=== PATIENT | female | born 1945 | race Caucasian/White ===

== ENCOUNTER 2017-02-06 12:44 | Emergency (ER) | payer OTHER ==
[~2017-02-06] VITALS: Ht 160 cm; Wt 52.4 kg
[2017-02-06 12:50] VITALS: TEMP 36.8; Ht 160 cm; Wt 52.4 kg
[2017-02-06] MEDS ORDERED: LORAZEPAM 2 MG/ML 1 ML VIAL IV STA (13:36)
[2017-02-06] MEDS ORDERED: SODIUM CHLORIDE 0.9% 1000ML 1,000 ML IV STA (13:36)
[2017-02-06] MEDS ORDERED: MoRPHine SULFATE 4 MG/ML 1 ML CARP\\VIAL IV STA (13:36)
[2017-02-06] MEDS ORDERED: DEXT40GE20 JT (13:59)
[2017-02-06] MEDS ORDERED: POLY335019 JT (13:59)
[2017-02-06] MEDS ORDERED: [UNRECOGNIZED DRUG - OTHER] PR (13:59)
[2017-02-06] MEDS ORDERED: MOMLX JT (13:59)
[2017-02-06] MEDS ORDERED: OXYC1TAB3 JT (13:59)
[2017-02-06] MEDS ORDERED: ALPR0.25 JT (13:59)
[2017-02-06] MEDS ORDERED: ACET-1311 JT (13:59)
[2017-02-06] MEDS ORDERED: GLGKIT INJ (13:59)
[2017-02-06] MEDS ORDERED: BISA10SU5 PR (13:59)
--- NOTE | 2017-02-06 14:03 | EMERGENCY ROOM VISIT NOTE ---
History Report prepared by Colten: Jordyn Alarcon Under the Supervision of: Dr. Laurie Jean Baptiste D.O. First contact with patient: 13:17 Chief Complaint: OTHER COMPLAINT Stated Complaint: WOUND DRAIN History of Present Illness The patient is a 71 year old female who presents to the Emergency Room complaining of constant abdominal pain beginning a few days ago. The patient states that she has a history of stomach cancer and had surgery about 6 weeks ago. She reports that she has had two drains in that have been draining less over the last few days. She notes that one of the drains has a pinhole in it. The patient states that she has been at [facility] and has had increasing gassiness, diarrhea, and a fever that began last night of 100.3. She reports that her physician was concerned that she had malodorous drainage from the site and increasing abdominal pain. The patient denies any blood in the stool. She notes that she has been taking Colace and after stopping it her diarrhea has improved slightly. Significant time spent reviewing records from [facility] which provided more detail regarding pt's surgery and course while at [facility]. Pt had complicated distal gastrectomy with subsequent leak and additional repair as well as post fluid collections requiring drainage tubes be placed. Source of History: patient Onset: a few days ago Position: abdomen Timing: constant Note: Pt complains of gassiness, a pinhole in her drain, and malodorous drainage. She denies blood in the stool. Review of Systems See HPI for pertinent positives & negatives. A total of 10 systems reviewed and were otherwise negative. Past Medical & Surgical Medical Problems: (1) Stomach cancer Family History No pertinent family history stated. Social History Smoking Status: Never Smoker Marital Status: Housing Status: lives with family Occupation Status: retired Current/Historical Medications Scheduled Acetaminophen (Tylenol), 975 MG JT Q6 Alprazolam (Xanax), 0.25 MG JT Q8 Bimatoprost (Lumigan), 1 DROPS OP HS Bisacodyl (Bisacodyl), 10 MG CA DAILY Brimonidine Tartrate Oph (Alphagan P Oph), 1 DROP OP TID Clonazepam (Klonopin), 0.5 MG JT DAILY Dextrose (Diabetic Use) (Glucose), 15 GM JT UD Docusate Sodium (Docusate Sodium), 50 MG JT BID Dorzolamide Hcl-Timolol Maleat (Cosopt Oph), 1 DROPS OP BID Enoxaparin (Lovenox), 40 MG SQ DAILY Glucagon (Glucagon Emergency Kit), 1 MG INJ UD Insulin Isophane (Human) (Humulin N Kwikpen), 6 SC TIDM Magnesium Hydroxide (Milk of Magnesia), 30 ML JT DAILY Polyethylene Glycol 3350 (Miralax), 17 GM JT QLUNCH [Sodium Biphosphate], 133 ML CA DAILY Scheduled PRN Oxycodone Ir (Roxicodone Ir), 5 MG JT Q4H PRN for Severe Pain Allergies Coded Allergies: No Known Allergies (Unverified , 02/06/17) Physical Exam Vital Signs Date Time Temp Pulse Resp B/P (MAP) Pulse Ox O2 Delivery O2 Flow Rate FiO2 02/06/17 19:39 98 137/78 95 02/06/17 19:31 141/83 02/06/17 19:29 92 22 94 02/06/17 19:14 92 22 97 02/06/17 19:01 130/76 02/06/17 18:59 96 23 02/06/17 18:44 105 21 99 02/06/17 18:31 135/77 02/06/17 18:30 92 19 135/77 98 Room Air 02/06/17 18:29 92 19 97 02/06/17 18:01 151/82 02/06/17 17:59 96 22 02/06/17 17:44 97 18 02/06/17 17:31 128/74 02/06/17 17:30 98 19 128/74 98 Room Air 02/06/17 17:29 94 21 02/06/17 17:14 95 20 02/06/17 17:01 133/81 02/06/17 16:59 94 23 02/06/17 16:44 93 18 02/06/17 16:31 137/81 02/06/17 16:29 95 20 98 02/06/17 16:14 91 22 97 02/06/17 16:01 127/74 02/06/17 16:00 121/79 02/06/17 16:00 92 18 127/74 96 Room Air 02/06/17 15:01 126/69 02/06/17 14:59 93 22 99 02/06/17 14:49 120/66 02/06/17 14:49 96 19 132/80 98 Room Air 02/06/17 14:44 92 13 97 02/06/17 14:39 91 02/06/17 12:50 36.8 93 16 132/70 98 Room Air 02/06/17 12:47 132/70 Physical Exam GENERAL: alert, well appearing, well nourished, no distress, non-toxic EYE EXAM: normal conjunctiva, PERRL and EOM's grossly intact OROPHARYNX: no exudate, no erythema, lips, buccal mucosa, and tongue normal and mucous membranes are moist NECK: supple, no nuchal rigidity, no adenopathy, non-tender LUNGS: Clear to auscultation. Normal chest wall mechanics HEART: no murmurs, S1 normal and S2 normal ABDOMEN: abdomen soft, normo-active bowel sounds, no masses, no rebound or guarding. J tube small amount of surrounding erythema at the skin site, no bleeding, no purulent drainage, sutures intact. Two additional drains skin site well appearing, no erythema, no drainage, healing vertical midline incision with 1cm of dehiscence on the inferior margin with foul odor and purulent drainage, dressing soaked with yellow purulent material. BACK: Back is symmetrical on inspection and there is no deformity, no midline tenderness, no CVA tenderness. SKIN: no rashes and no bruising UPPER EXTREMITIES: upper extremities are grossly normal. LOWER EXTREMITIES: No pitting edema. NEURO EXAM: Normal sensorium, cranial nerves II-XII grossly intact, normal speech, no gross weakness of arms, no gross weakness of legs. Medical Decision & Procedures ER Provider Diagnostic Interpretation: Radiology results have been interpreted by the radiologist and reviewed by me. 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 Lung bases: Calcified granuloma in the left lung base. Normal heart size. No pericardial or pleural effusion. Liver: Trace fluid and gas along the anterior aspect of the left hepatic lobe. Mildly nodular undersurface of the liver with relative hypertrophy of the left hepatic lobe. No focal lesion. Patent hepatic vasculature. Biliary: No intrahepatic or extrahepatic biliary ductal dilatation. Gallbladder is mildly dilated with a mildly thick wall. No pericholecystic fluid or inflammatory change. Hyperdensity in the gallbladder neck suggests stones or sludge. Pancreas: Normal. Spleen: Parenchymal calcifications likely suggests prior granulomatous infection. Adrenal glands: Few varices suggested immediately inferior to the right adrenal gland. Mild nodular thickening of the left adrenal gland. Kidneys and ureters: Mild urothelial thickening of the proximal ureters suggested, greater on the left. Bladder: Normal. Pelvic organs: Uterus grossly normal. No adnexal masses. Bowel: Colocolonic anastomosis at the level of the splenic flexure, which is patent. Normal appendix. No bowel obstruction. Postsurgical changes of right retrocolic Jayme-en-Y gastric bypass. A jejunostomy tube is in place. Peritoneal cavity: 2 pigtail drains are in place, one terminating anteriorly in the mid abdomen immediately subjacent to a sinus tract (series 3 image 220) and a second drain terminating in the left anterior abdomen. No significant fluid at the termini, however, there is a laminar gas and fluid containing rim enhancing fluid collection along the course of the left drain. This collection is located immediately subjacent to the abdominal wall and tracks superiorly to the anterior left hepatic lobe. This collection measures 1.4 cm in thickness and approximately 8 cm in width. Vasculature: Atherosclerosis of the normal caliber abdominal aorta. IVC patent. However, nonocclusive thrombus noted in the left common femoral vein (series 3 image 336). Lymph nodes: No enlarged lymph nodes in the abdomen or pelvis. Abdominal wall: A midline defect is noted in the ventral abdomen, which demonstrates rim enhancement and contains small amount of fluid and gas. An overlying bandage is noted. This appears to violate the anterior peritoneum/abdominal wall at the level of the right mid abdominal drain. Musculoskeletal: Normal. IMPRESSION: 1. Laminar rim-enhancing fluid collection in the anterior left peritoneum tracking to the left anterior hepatic lobe, consistent with an abscess. This is along the course of the left abdominal pigtail drain, although no fluid is at the terminus of the drain. 2. Midline sinus tract containing fluid and gas with defect in the overlying cutis and a potential defect in the subjacent abdominal wall/peritoneum at the level of the right mid abdominal pigtail drain. No significant fluid at the terminus of the right mid abdominal drain. 3. Nonocclusive thrombus in the left common femoral vein. 4. Mild urothelial thickening in the proximal ureters. Upper tract infection cannot be excluded. Correlate with urinalysis. 5. Mildly dilated gallbladder with mild wall thickening. This is equivocal for cholecystitis given the absence of pericholecystic change. If there is clinical concern for cholecystitis, nuclear medicine hepatobiliary scan to be considered. The report will be called/faxed according to standard departmental protocol. Electronically signed by: Edward Romano M.D. 02/06/2017 4:05 PM Dictated Date/Time: 02/06/2017 3:49 PM Laboratory Results 02/06/17 14:00 Red Blood Count 3.96, Mean Corpuscular Volume 88.4, Mean Corpuscular Hemoglobin 29.3, Mean Corpuscular Hemoglobin Concent 33.1, Mean Platelet Volume 8.2, Neutrophils (%) (Auto) 69.1, Lymphocytes (%) (Auto) 18.9, Monocytes (%) (Auto) 10.7, Eosinophils (%) (Auto) 0.5, Basophils (%) (Auto) 0.4, Neutrophils # (Auto ) 5.40, Lymphocytes # (Auto) 1.48, Monocytes # (Auto) 0.84, Eosinophils # (Auto ) 0.04, Basophils # (Auto) 0.03 02/06/17 14:00 Test 02/06/17 14:00 02/06/17 14:20 02/06/17 14:27 White Blood Count 7.82 K/uL (4.8-10.8) Red Blood Count 3.96 M/uL (4.2-5.4) Hemoglobin 11.6 g/dL (12.0-16.0) Hematocrit 35.0 % (37-47) Mean Corpuscular Volume 88.4 fL (80-100) Mean Corpuscular Hemoglobin 29.3 pg (25-34) Mean Corpuscular Hemoglobin Concent 33.1 g/dl (32-36) Platelet Count 397 K/uL (130-400) Mean Platelet Volume 8.2 fL (7.4-10.4) Neutrophils (%) (Auto) 69.1 % Lymphocytes (%) (Auto) 18.9 % Monocytes (%) (Auto) 10.7 % Eosinophils (%) (Auto) 0.5 % Basophils (%) (Auto) 0.4 % Neutrophils # (Auto) 5.40 K/uL (1.4-6.5) Lymphocytes # (Auto) 1.48 K/uL (1.2-3.4) Monocytes # (Auto) 0.84 K/uL (0.11-0.59) Eosinophils # (Auto) 0.04 K/uL (0-0.5) Basophils # (Auto) 0.03 K/uL (0-0.2) RDW Standard Deviation 51.0 fL (36.4-46.3) RDW Coefficient of Variation 15.8 % (11.5-14.5) Immature Granulocyte % (Auto) 0.4 % Immature Granulocyte # (Auto) 0.03 K/uL (0.00-0.02) Anion Gap 7.0 mmol/L (3-11) Est Creatinine Clear Calc Drug Dose 90.8 ml/min Estimated GFR () 115.2 Estimated GFR (Non- 99.4 BUN/Creatinine Ratio 28.7 (10-20) Calcium Level 9.0 mg/dl (8.5-10.1) Total Bilirubin 0.3 mg/dl (0.2-1) Aspartate Amino Transf (AST/SGOT) 35 U/L (15-37) Alanine Aminotransferase (ALT/SGPT) 40 U/L (12-78) Alkaline Phosphatase 140 U/L (45-117) Total Protein 7.4 gm/dl (6.4-8.2) Albumin 2.7 gm/dl (3.4-5.0) Globulin 4.7 gm/dl (2.5-4.0) Albumin/Globulin Ratio 0.6 (0.9-2) Lipase 282 U/L (73-393) Chemistry Specimen Hemolysis Urine Color YELLOW Urine Appearance CLOUDY (CLEAR) Urine pH 8.0 (4.5-7.5) Urine Specific [place] 1.020 (1.000-1.030) Urine Protein NEG (NEG) Urine Glucose (UA) NEG (NEG) Urine Ketones NEG (NEG) Urine Occult Blood NEG (NEG) Urine Nitrite NEG (NEG) Urine Bilirubin NEG (NEG) Urine Urobilinogen NEG (NEG) Urine Leukocyte Esterase TRACE (NEG) Urine WBC (Auto) 1-5 /hpf (0-5) Urine RBC (Auto) 0-4 /hpf (0-4) Urine Hyaline Casts (Auto) 1-5 /lpf (0-5) Urine Epithelial Cells (Auto) 10-20 /lpf (0-5) Urine Bacteria (Auto) NEG (NEG) Urine Crystals CALCIUM OXALATE (NONE Lactic Acid Level 1.0 mmol/L (0.4-2.0) Laboratory results per my review. Medications Administered Medications (Trade) Dose Ordered Sig/Luigi Route Start Time Stop Time Status Last Admin Dose Admin Sodium Chloride 1,000 ml @ 125 mls/hr Q8H STAT IV 02/06/17 13:36 02/06/17 21:10 DC 02/06/17 14:22 125 MLS/HR Lorazepam (Ativan Inj) 0.5 mg NOW STAT IV 02/06/17 13:36 02/06/17 13:39 DC 02/06/17 14:23 0.5 MG Morphine Sulfate (MoRPHine SULFATE INJ) 4 mg NOW STAT IV 02/06/17 13:36 02/06/17 13:39 DC 02/06/17 14:11 4 MG Piperacillin Sod/ Tazobactam Sod (Zosyn Iv) 3.375 gm NOW STAT IV 02/06/17 16:50 02/06/17 16:52 DC 02/06/17 17:39 3.375 GM Lorazepam (Ativan Inj) 0.5 mg PRN PRN IV 02/06/17 17:15 02/06/17 21:10 DC 02/06/17 19:35 0.5 MG Morphine Sulfate (MoRPHine SULFATE INJ) 4 mg Q15M PRN IV 02/06/17 17:45 02/06/17 21:10 DC 02/06/17 19:34 4 MG ECG Indication: abdominal pain Rate (beats per minute): 91 Rhythm: normal sinus Findings: no acute ischemic change, no ectopy, other (normal intervals) ED Course 1317: The patient was evaluated in room C7. A complete history and physical exam was performed. 1336: Morphine Sulfate 4mg IV, Ativan Inj 0.5mg IV, Sodium Chloride 1000 ml @ 125 mls/hr IV. 1554: I reevaluated and updated the patient. 1624: I spoke to the patients daughter. She is in agreement with the plan. 1650: Zosyn IV 3.375gm IV. 1653: I reviewed the patient's case with Dr. Paz of Surgery at [facility]. He will evaluate the patient for further management. Is agreeable with transfer. 1659: Upon reevaluation, the patient is doing well. I discussed the findings and the treatment plan with the patient. The patient expresses agreement and understanding. 1701: I updated the patient. Medical Decision Differential diagnosis: Etiologies such as appendicitis, diverticulitis, PUD, biliary pathology, UTI, pancreatitis, obstruction, mesenteric ischemia, aortic pathology, infections, inflammatory bowel disease, renal colic, as well as others were entertained. Patient with a, catered medical history and recent gastric resection at [facility] with a, catered postop course. Patient has now been discharged to rehabilitation for the last 8 days. Patient resents today with worsening pain over the last 3 days and a fever which began last night. Patient found to have intra-abdominal abscess along the course of her drainage tubes, as well as an area of dehiscence at her midline vertical incision that extends into her peritoneal cavity. Case discussed with surgery at [facility] who was very familiar with the patient and her recent admission, they're willing to accept her in transfer. Since significant time doing multiple discussions with the patient and family members at bedside answering all questions as well as making a call to an outside family member also. Patient given Zosyn prior to transport. Patient was hemodynamically stable throughout. Medication Reconcilliation Current Medication List: was personally reviewed by me Blood Pressure Screening Patient's blood pressure: Elevated blood pressure Blood pressure disposition: Elevated BP felt to be situational Impression Primary Impression: Abdominal pain Additional Impressions: Fever Post-operative wound abscess Intra-abdominal abscess Critical Care I have personally spent greater than 45 minutes of critical care time in the direct management of this patient. This includes bedside care, interpretation of diagnostic studies, and testing, discussion with consultants, patient, and family members, and other required patient management activities. This 45 minutes is in excess of all separately billable procedures. Scribe Attestation The scribe's documentation has been prepared under my direction and personally reviewed by me in its entirety. I confirm that the note above accurately reflects all work, treatment, procedures, and medical decision making performed by me. Departure Information Dispostion Transfer Acute Care Facility Patient Instructions [facility] Problem Qualifiers Primary Impression: Abdominal pain Abdominal location: generalized Qualified Codes: R10.84 - Generalized abdominal pain Additional Impressions: Fever Fever type: unspecified Qualified Codes: R50.9 - Fever, unspecified Post-operative wound abscess Encounter type: initial encounter Qualified Codes: T81.4XXA - Infection following a procedure, initial encounter
[2017-02-06] MEDS ORDERED: INSU1INJ23 SC (14:04)
[2017-02-06] MEDS ORDERED: ENOX40IN SQ (14:05)
[2017-02-06] MEDS ORDERED: DORZ1SOL6 OP (14:07)
[2017-02-06] MEDS ORDERED: DOCU5LIQ JT (14:11)
[2017-02-06] MEDS ORDERED: CLON0.5T3 JT (14:13)
[2017-02-06] MEDS ORDERED: BRIM0.15 OP (14:14)
[2017-02-06] MEDS ORDERED: BIMA0.01 OP (14:16)
[2017-02-06 14:22] LABS: BASO % 0.4 %; BASO ABS # 0.03 K/uL (0-0.2); COMPLETE YES; EOS % 0.5 %; IG% 0.4 %; LYMPH % 18.9 %; LYMPH ABS # 1.48 K/uL (1.2-3.4); MEAN CELL VOLUME 88.4 fL (80-100); MEAN CORPUSCULAR HEMOGLOBIN 29.3 pg (25-34); MEAN CORPUSCULAR HGB CONC 33.1 g/dl (32-36); MEAN PLATELET VOLUME 8.2 fL (7.4-10.4); MONO % 10.7 %; NEUT % 69.1 %; PLATELET COUNT 397 K/uL (130-400); RED BLOOD COUNT 3.96 M/uL (4.2-5.4); WHITE BLOOD COUNT 7.82 K/uL (4.8-10.8)
[2017-02-06 14:50] LABS: ALB/GLOB RATIO 0.6 (0.9-2); BUN/CREATININE RATIO 28.7 (10-20); CREATININE 0.47 mg/dl (0.60-1.20); POTASSIUM 4.9 mmol/L (3.5-5.1)
[2017-02-06 15:19] LABS: URINE APPEARANCE CLOUDY (CLEAR); URINE BILIRUBIN NEG (NEG); URINE COLOR YELLOW; URINE NITRITE NEG (NEG); UROBILINOGEN NEG (NEG); ZZUR CULT IF INDIC CLEAN CATCH NO
[2017-02-06 15:25] LABS: REVIEW REQ? YES
[2017-02-06 15:26] LABS: MANUAL MICROSCOPIC REQUIRED? NO
[2017-02-06] MEDS ORDERED: OPTIRAY 320 IV PRN (16:00)
--- NOTE | 2017-02-06 16:06 | DIAGNOSTIC IMAGING REPORT ---
ABD/PELVIS IV CONTRAST ONLY CLINICAL HISTORY: 71 years-old Female presenting with abd pain, s/p gastrectomy, multiple drains. TECHNIQUE: Multidetector CT of the abdomen and pelvis was performed after the administration of intravenous contrast. IV contrast: 92 mL of Optiray 320. A dose lowering technique was used consistent with the principles of ALARA (as low as reasonably achievable). COMPARISON: None. CT DOSE (mGy.cm): The estimated cumulative dose is 254.85 mGy.cm. 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 Lung bases: Calcified granuloma in the left lung base. Normal heart size. No pericardial or pleural effusion. Liver: Trace fluid and gas along the anterior aspect of the left hepatic lobe. Mildly nodular undersurface of the liver with relative hypertrophy of the left hepatic lobe. No focal lesion. Patent hepatic vasculature. Biliary: No intrahepatic or extrahepatic biliary ductal dilatation. Gallbladder is mildly dilated with a mildly thick wall. No pericholecystic fluid or inflammatory change. Hyperdensity in the gallbladder neck suggests stones or sludge. Pancreas: Normal. Spleen: Parenchymal calcifications likely suggests prior granulomatous infection. Adrenal glands: Few varices suggested immediately inferior to the right adrenal gland. Mild nodular thickening of the left adrenal gland. Kidneys and ureters: Mild urothelial thickening of the proximal ureters suggested, greater on the left. Bladder: Normal. Pelvic organs: Uterus grossly normal. No adnexal masses. Bowel: Colocolonic anastomosis at the level of the splenic flexure, which is patent. Normal appendix. No bowel obstruction. Postsurgical changes of right retrocolic Jayme-en-Y gastric bypass. A jejunostomy tube is in place. Peritoneal cavity: 2 pigtail drains are in place, one terminating anteriorly in the mid abdomen immediately subjacent to a sinus tract (series 3 image 220) and a second drain terminating in the left anterior abdomen. No significant fluid at the termini, however, there is a laminar gas and fluid containing rim enhancing fluid collection along the course of the left drain. This collection is located immediately subjacent to the abdominal wall and tracks superiorly to the anterior left hepatic lobe. This collection measures 1.4 cm in thickness and approximately 8 cm in width. Vasculature: Atherosclerosis of the normal caliber abdominal aorta. IVC patent. However, nonocclusive thrombus noted in the left common femoral vein (series 3 image 336). Lymph nodes: No enlarged lymph nodes in the abdomen or pelvis. Abdominal wall: A midline defect is noted in the ventral abdomen, which demonstrates rim enhancement and contains small amount of fluid and gas. An overlying bandage is noted. This appears to violate the anterior peritoneum/abdominal wall at the level of the right mid abdominal drain. Musculoskeletal: Normal. IMPRESSION: 1. Laminar rim-enhancing fluid collection in the anterior left peritoneum tracking to the left anterior hepatic lobe, consistent with an abscess. This is along the course of the left abdominal pigtail drain, although no fluid is at the terminus of the drain. 2. Midline sinus tract containing fluid and gas with defect in the overlying cutis and a potential defect in the subjacent abdominal wall/peritoneum at the level of the right mid abdominal pigtail drain. No significant fluid at the terminus of the right mid abdominal drain. 3. Nonocclusive thrombus in the left common femoral vein. 4. Mild urothelial thickening in the proximal ureters. Upper tract infection cannot be excluded. Correlate with urinalysis. 5. Mildly dilated gallbladder with mild wall thickening. This is equivocal for cholecystitis given the absence of pericholecystic change. If there is clinical concern for cholecystitis, nuclear medicine hepatobiliary scan to be considered. The report will be called/faxed according to standard departmental protocol. Electronically signed by: Edward Romano M.D. 02/06/2017 4:05 PM Dictated Date/Time: 02/06/2017 3:49 PM
[2017-02-06] MEDS ORDERED: PIPERACILLIN/TAZOBACTAM 3.375 GM/100ML D5W IV STA (16:50)
[2017-02-06] MEDS ORDERED: LORAZEPAM 2 MG/ML 1 ML VIAL IV PRN (17:15)
[2017-02-06] MEDS ORDERED: ONDANSETRON INJ 2 MG/ML 2 ML VIAL IV STA (17:42)
[2017-02-06] MEDS ORDERED: MoRPHine SULFATE 4 MG/ML 1 ML CARP\\VIAL IV PRN (17:45)
[2017-02-06 19:39] VITALS: BP 137/78; PULSE 98; O2SAT 95
== END 2017-02-06 19:50 | disposition short-term general hospital (02) ==
LOC: C.EDC 12:48
DX: R10.84 Generalized abdominal pain (principal); T81.4XXA Infection following a procedure, initial encounter; Y84.9 Medical procedure, unspecified as the cause of abnormal reaction of the patient, or of later complication, without mention of misadventure at the time of the procedure; R50.9 Fever, unspecified; Z85.028 Personal history of other malignant neoplasm of stomach; Z79.899 Other long term (current) drug therapy

== ENCOUNTER 2017-02-16 19:18 | Emergency (ER) | payer OTHER ==
[~2017-02-16] VITALS: Ht 160 cm; Wt 59.4 kg
[~2017-02-16 19:18] MED LIST: ACET-1311 JT; ALPR0.25 JT; BIMA0.01 OP; BISA10SU5 PR; BRIM0.15 OP; CLON0.5T3 JT; DEXT40GE20 JT; DOCU5LIQ JT; DORZ1SOL6 OP; ENOX40IN SQ; GLGKIT INJ; INSU1INJ23 SC; MOMLX JT; OXYC1TAB3 JT; POLY335019 JT; [UNRECOGNIZED DRUG - OTHER] PR
[2017-02-16 19:20] VITALS: TEMP 37.1; Ht 160 cm; Wt 59.4 kg
[2017-02-16 20:15] LABS: BASO % 0.3 %; BASO ABS # 0.02 K/uL (0-0.2); COMPLETE YES; EOS % 1.5 %; HEMATOCRIT 32.1 % (37-47); IG% 0.3 %; LYMPH % 35.1 %; LYMPH ABS # 2.09 K/uL (1.2-3.4); MEAN CELL VOLUME 86.8 fL (80-100); MEAN CORPUSCULAR HEMOGLOBIN 28.1 pg (25-34); MEAN CORPUSCULAR HGB CONC 32.4 g/dl (32-36); MONO % 9.4 %; NEUT % 53.4 %; PLATELET COUNT 324 K/uL (130-400); WHITE BLOOD COUNT 5.96 K/uL (4.8-10.8)
[2017-02-16 20:40] LABS: ALKALINE PHOSPHATASE 113 U/L (45-117); ALT/SGPT 24 U/L (12-78); BLOOD UREA NITROGEN 6 mg/dl (7-18); BUN/CREATININE RATIO 9.8 (10-20); CALCIUM 8.5 mg/dl (8.5-10.1); CARBON DIOXIDE 31 mmol/L (21-32); CHLORIDE 102 mmol/L (98-107); CREATININE 0.58 mg/dl (0.60-1.20); GLUCOSE 85 mg/dl (70-99); SODIUM 136 mmol/L (136-145)
[2017-02-16] MEDS ORDERED: VFND200 PO (21:07)
[2017-02-16] MEDS ORDERED: ONDA8TAB6 PO (21:07)
[2017-02-16] MEDS ORDERED: IBUP-1459 PO (21:07)
[2017-02-16] MEDS ORDERED: NSF10F JT (21:07)
[2017-02-16] MEDS ORDERED: LANS30CA12 PO (21:07)
[2017-02-16] MEDS ORDERED: AGMUDL4005 JT (21:07)
[2017-02-16] MEDS ORDERED: CPR/500 PO (21:07)
[2017-02-16] MEDS ORDERED: PROBCAP2 PO (21:07)
[2017-02-16] MEDS ORDERED: OMEP20TA PO (21:07)
[2017-02-16] MEDS ORDERED: DOCU-94 PO (21:07)
[2017-02-16] MEDS ORDERED: ENOX60IN SQ (21:07)
[2017-02-16 21:36] LABS: POTASSIUM 3.5 mmol/L (3.5-5.1)
--- NOTE | 2017-02-16 22:43 | DIAGNOSTIC IMAGING REPORT ---
CT ABD/PELVIS IV AND ORAL CONT CLINICAL HISTORY: Left upper quadrant abdominal pain. History of gastrectomy with abscess. COMPARISON STUDY: 02/06/2017 TECHNIQUE: Following the IV administration of 116 mL of Optiray-320, CT scan of the abdomen and pelvis was performed from the lung bases to the proximal femurs. Images are reviewed in the axial, sagittal, and coronal planes. IV contrast was administered without complication. A dose lowering technique was utilized adhering to the principles of ALARA. CT DOSE: 254.85 mGy.cm FINDINGS: Lower chest: There is a small left pleural effusion. There is no pericardial effusion. Liver: The contrast-enhanced liver is normal in size, contour, and attenuation. There is no intrahepatic biliary ductal dilatation. The hepatic veins and portal veins are patent. Gallbladder: Mildly distended, and similar to the preceding study. Spleen: Top normal in size. Pancreas: Unremarkable. Adrenal glands: Unremarkable. Kidneys: There is symmetric renal cortical enhancement. The kidneys are normal in size without hydronephrosis. Bowel: There are mildly dilated proximal jejunal loops, but contrast is seen within distal small bowel. The findings likely represent a mild ileus. A significant bowel obstruction is not felt to be present. There is moderate fecal retention. There are postsurgical changes involving the stomach. The patient appears be status post a gastric bypass with Jayme-en-Y anastomosis. There is also evidence for a colocolonic anastomosis within the left upper quadrant. There is a left upper quadrant surgical drain. This is located within the abscess cavity measuring 80 x 12 x 42 mm. There is gas present within the anterior abdominal wall. There is apparent sinus tract extending from the abscess to the skin surface. There is no acute diverticulitis. There is no acute appendicitis. Peritoneum: There is no intraperitoneal free air or abdominal ascites. No definite extraluminal contrast is visualized. Vasculature: The abdominal aorta is normal in course and caliber. There is a nonocclusive thrombus within the left common femoral vein. Adenopathy: None. Pelvic viscera: The bladder, and pelvic viscera are unremarkable. Skeletal structures: No destructive osseous lesions are seen. IMPRESSION: 1. No evidence of bowel obstruction. No evidence of free air 2. Postsurgical changes as described above. There is a surgical drain within 80 x 12 x 42 mm left upper quadrant abscess. There is a fistulous tract extending to the anterior abdominal wall 3. No oral contrast is visualized within the abscess collection 4. Fecal retention 5. No evidence of acute appendicitis 6. Persistent nonocclusive left common femoral vein thrombus 7. Small left pleural effusion Electronically signed by: Gumaro Arrieta M.D. 02/16/2017 10:42 PM Dictated Date/Time: 02/16/2017 10:31 PM
[2017-02-16] MEDS ORDERED: OPTIRAY 320 IV PRN (22:45)
[2017-02-17 00:06] LABS: URINE APPEARANCE CLEAR (CLEAR); URINE BILIRUBIN NEG (NEG); URINE COLOR YELLOW; URINE NITRITE NEG (NEG); URINE PH 7.5 (4.5-7.5); URINE SPECIFIC GRAVITY > 1.045 (1.000-1.030); UROBILINOGEN NEG (NEG)
[2017-02-17 00:08] LABS: MANUAL MICROSCOPIC REQUIRED? NO; REVIEW REQ? NO
[2017-02-17 01:59] VITALS: BP 139/84; PULSE 84; O2SAT 98
--- NOTE | 2017-02-17 02:01 | EMERGENCY ROOM VISIT NOTE ---
History Report prepared by Colten: Jordyn Alarcon Under the Supervision of: Dr. Ronnie Cam M.D. First contact with patient: 19:22 Stated Complaint: AB PAIN History of Present Illness The patient is a 71 year old female who presents to the Emergency Room with complaints of resolved sharp left sided abdominal pain beginning yesterday. The patient states that she has a history of stomach cancer and was seen here 10 days ago and was transferred to [place]. She reports that 7 weeks ago she had a surgery to remove a stomach tumor. She had three quarters of her stomach removed at the time. She notes that she has a J tube in her stomach and was getting tube feeds that stopped because she had diarrhea and was not tolerating them well. The patient states that at [facility] they repositioned her draining tube to resolve the abscess that had developed in the left upper quadrant when it was seen here on CAT scan. While in the hospital her J-tube got caught on her gown and came out. It was replaced by the physician there and they got a confirmatory x-ray. She notes that she had 2 feeds with the new placement before she stopped having tube feeds 2 days ago. She reports that they removed the drain on the right side and the left sided drain was repositioned and has been having a significant amount of output. The patient states that yesterday she began having sharp left sided abdominal pain when she was still at [facility] but after having a CT scan that was normal, she was discharged home. The patient reports that today her pain increased significantly and began radiating up and down her left side. She notes that she was having severe pain that she rates as a 11/10 in severity and she was not able to walk or go to the bathroom. The patient reports that her feeding tube fell out today and when it fell out she had almost immediate relief of her pain. She denies any fever, nausea, vomiting, and urinary symptoms. Source of History: patient Onset: yesterday Position: abdomen Symptom Intensity: 1110 Quality: sharp Timing: resolved Associated Symptoms: No fevers, No nausea, No vomiting, No urinary symptoms Note: Pt complains of redness around the drain site. Review of Systems See HPI for pertinent positives & negatives. A total of 10 systems reviewed and were otherwise negative. Past Medical & Surgical Medical Problems: (1) Stomach cancer Family History No pertinent family history stated. Social History Smoking Status: Never Smoker Marital Status: Housing Status: lives with family Occupation Status: retired Current/Historical Medications Scheduled Acetaminophen (Tylenol), 975 MG JT Q6 Alprazolam (Xanax), 0.25 MG JT Q8 Amoxicillin/Clavulanate Potas (Augmentin 400MG/5ML), 10 ML JT BID Bimatoprost (Lumigan), 1 DROPS OP HS Brimonidine Tartrate Oph (Alphagan P Oph), 1 DROP OP TID Ciprofloxacin (Ciprofloxacin HCl), 500 MG PO Q12 Clonazepam (Klonopin), 0.5 MG JT DAILY Docusate Sodium (Colace), 50 MG PO BID Dorzolamide Hcl-Timolol Maleat (Cosopt Oph), 1 DROPS OP BID Enoxaparin (Lovenox), 0.5 ML SQ BID Lansoprazole (Prevacid), 30 MG PO DAILY Omeprazole (Omeprazole), 40 MG PO BID Probiotic Product (Florajen3), 1 CAP PO DAILY Sodium Chloride (Saline Flush), 10 ML JT BID Voriconazole (Voriconazole), 200 MG PO Q12 Scheduled PRN Ibuprofen (Motrin), 400 MG PO Q6H PRN for Pain Ondansetron Hcl (Zofran), 16 MG PO Q8 PRN for Nausea Oxycodone Ir (Roxicodone Ir), 5 MG JT Q4H PRN for Severe Pain Allergies Coded Allergies: No Known Allergies (Unverified , 02/06/17) Physical Exam Vital Signs Date Time Temp Pulse Resp B/P (MAP) Pulse Ox O2 Delivery O2 Flow Rate FiO2 02/17/17 00:15 87 02/16/17 22:50 84 13 148/87 99 Room Air 02/16/17 21:00 80 22 156/78 98 Room Air 02/16/17 20:04 81 02/16/17 19:20 37.1 85 15 153/87 99 Room Air Physical Exam Constitutional: Vital signs reviewed. Eyes: Pupils are equal round reactive to light. Conjunctiva are noninjected. ENT: Pharynx is clear without erythema or exudate. Mucous membranes are moist. Neck supple without meningeal signs. Respiratory: Clear to auscultation bilaterally. Breath sounds are equal bilaterally. Cardiovascular: Regular rate and rhythm. No rubs or gallops. GI: Mild LUQ tenderness, stoma for J tube with some clear drainage and mild erythema. There is a wound drain above this suture to the abdomen draining brown fluid into a collection bag. Ostomy bag covering mid incision draining brown fluid as well. Stoma RLQ without drainage or erythema. Bowel sounds are present. Soft, nondistended. Musculoskeletal: No peripheral edema. Integumentary: No cyanosis. Neurological: The patient is awake and alert. No focal deficits. Psychiatric: Normal affect. Medical Decision & Procedures ER Provider Diagnostic Interpretation: Radiology results as stated below per my review and the radiologist's interpretation: CT ABD/PELVIS IV AND ORAL CONT FINDINGS: Lower chest: There is a small left pleural effusion. There is no pericardial effusion. Liver: The contrast-enhanced liver is normal in size, contour, and attenuation. There is no intrahepatic biliary ductal dilatation. The hepatic veins and portal veins are patent. Gallbladder: Mildly distended, and similar to the preceding study. Spleen: Top normal in size. Pancreas: Unremarkable. Adrenal glands: Unremarkable. Kidneys: There is symmetric renal cortical enhancement. The kidneys are normal in size without hydronephrosis. Bowel: There are mildly dilated proximal jejunal loops, but contrast is seen within distal small bowel. The findings likely represent a mild ileus. A significant bowel obstruction is not felt to be present. There is moderate fecal retention. There are postsurgical changes involving the stomach. The patient appears be status post a gastric bypass with Jayme-en-Y anastomosis. There is also evidence for a colocolonic anastomosis within the left upper quadrant. There is a left upper quadrant surgical drain. This is located within the abscess cavity measuring 80 x 12 x 42 mm. There is gas present within the anterior abdominal wall. There is apparent sinus tract extending from the abscess to the skin surface. There is no acute diverticulitis. There is no acute appendicitis. Peritoneum: There is no intraperitoneal free air or abdominal ascites. No definite extraluminal contrast is visualized. Vasculature: The abdominal aorta is normal in course and caliber. There is a nonocclusive thrombus within the left common femoral vein. Adenopathy: None. Pelvic viscera: The bladder, and pelvic viscera are unremarkable. Skeletal structures: No destructive osseous lesions are seen. IMPRESSION: 1. No evidence of bowel obstruction. No evidence of free air 2. Postsurgical changes as described above. There is a surgical drain within 80 x 12 x 42 mm left upper quadrant abscess. There is a fistulous tract extending to the anterior abdominal wall 3. No oral contrast is visualized within the abscess collection 4. Fecal retention 5. No evidence of acute appendicitis 6. Persistent nonocclusive left common femoral vein thrombus 7. Small left pleural effusion Electronically signed by: Gumaro Arrieta M.D. 02/16/2017 10:42 PM Dictated Date/Time: 02/16/2017 10:31 PM Laboratory Results 02/16/17 20:00 Red Blood Count 3.70, Mean Corpuscular Volume 86.8, Mean Corpuscular Hemoglobin 28.1, Mean Corpuscular Hemoglobin Concent 32.4, Mean Platelet Volume 8.0, Neutrophils (%) (Auto) 53.4, Lymphocytes (%) (Auto) 35.1, Monocytes (%) (Auto) 9.4, Eosinophils (%) (Auto) 1.5, Basophils (%) (Auto) 0.3, Neutrophils # (Auto) 3.18, Lymphocytes # (Auto) 2.09, Monocytes # (Auto) 0.56, Eosinophils # (Auto) 0.09, Basophils # (Auto) 0.02 02/16/17 20:00 02/16/17 21:15 Test 02/16/17 20:00 02/16/17 21:15 02/16/17 23:57 White Blood Count 5.96 K/uL (4.8-10.8) Red Blood Count 3.70 M/uL (4.2-5.4) Hemoglobin 10.4 g/dL (12.0-16.0) Hematocrit 32.1 % (37-47) Mean Corpuscular Volume 86.8 fL (80-100) Mean Corpuscular Hemoglobin 28.1 pg (25-34) Mean Corpuscular Hemoglobin Concent 32.4 g/dl (32-36) Platelet Count 324 K/uL (130-400) Mean Platelet Volume 8.0 fL (7.4-10.4) Neutrophils (%) (Auto) 53.4 % Lymphocytes (%) (Auto) 35.1 % Monocytes (%) (Auto) 9.4 % Eosinophils (%) (Auto) 1.5 % Basophils (%) (Auto) 0.3 % Neutrophils # (Auto) 3.18 K/uL (1.4-6.5) Lymphocytes # (Auto) 2.09 K/uL (1.2-3.4) Monocytes # (Auto) 0.56 K/uL (0.11-0.59) Eosinophils # (Auto) 0.09 K/uL (0-0.5) Basophils # (Auto) 0.02 K/uL (0-0.2) RDW Standard Deviation 47.7 fL (36.4-46.3) RDW Coefficient of Variation 15.1 % (11.5-14.5) Immature Granulocyte % (Auto) 0.3 % Immature Granulocyte # (Auto) 0.02 K/uL (0.00-0.02) Anion Gap 3.0 mmol/L (3-11) Est Creatinine Clear Calc Drug Dose 73.6 ml/min Estimated GFR () 107.5 Estimated GFR (Non- 92.7 BUN/Creatinine Ratio 9.8 (10-20) Calcium Level 8.5 mg/dl (8.5-10.1) Total Bilirubin 0.3 mg/dl (0.2-1) Alanine Aminotransferase (ALT/SGPT) 24 U/L (12-78) Alkaline Phosphatase 113 U/L (45-117) Total Protein 6.3 gm/dl (6.4-8.2) Albumin 2.6 gm/dl (3.4-5.0) Lipase 170 U/L (73-393) Direct Bilirubin 0.1 mg/dl (0-0.2) Aspartate Amino Transf (AST/SGOT) 28 U/L (15-37) Urine Color YELLOW Urine Appearance CLEAR (CLEAR) Urine pH 7.5 (4.5-7.5) Urine Specific Mason > 1.045 (1.000-1.030) Urine Protein NEG (NEG) Urine Glucose (UA) NEG (NEG) Urine Ketones 1+ (NEG) Urine Occult Blood NEG (NEG) Urine Nitrite NEG (NEG) Urine Bilirubin NEG (NEG) Urine Urobilinogen NEG (NEG) Urine Leukocyte Esterase NEG (NEG) Laboratory results as reviewed by me. ECG Indication: abdominal pain Rate (beats per minute): 73 Rhythm: normal sinus Findings: no acute ischemic change, no ectopy ED Course 1921: The patient was evaluated in room B12B. A complete history and physical exam was performed. 2013: The patient was admitted to [facility] for malposition of her drained and it was repositioned. She had a CT scan on the which showed near complete resolution of the LUQ fluid collection. During her hospitalization it was noted that she had a DVT in left external iliac vein and was started on anticoagulants. She also had an upper GI swallow study which showed no anastamotic leak. She was discharged on Augmentin, Cipro and Voriconazole. 2048: I spoke to Dr. Arrieta of radiology and he recommended a CT with oral contrast. 2110: I spoke to the patient about her test results. 2156: The patient is having difficulty with oral contrast due to a feeling of heartburn and nausea. She will continue to drink the contrast very slowly when she starts to feel better. 2321: I updated the patient and told her that the surgeon executive communications manager here is in the OR and he is not going to available right now. She said that she is okay calling [facility] but does not want to go there [facility]. 2329: I spoke to Dr. Parra of Surgery at [facility]. He recommends the patient be sent to [facility]. 0023: Dr. Delatorre of Surgical Oncology at [place]. He recommends that we try to save the J tube fistula track and we can send her back to [facility]. If not, they will evaluate her at [facility]. 0037: I spoke to Dr. Parra of Surgery. He will come down and attempt to place the J-Tube. 0039: I spoke to Dr. Parra and he no longer feels comfortable putting the J-Tube in. 0103: I spoke to Dr. Delatorre again and the patients family. He is currently discussing a plan with the patients daughter to decide whether or not to transfer her. 0121: Dr. Delatorre talked to the patient's family at length. They decided that they would let the tract close and she will go back to [facility] as she has been eating well there. 0128: I confirmed the plan with the patient. 0135: Upon reevaluation, the patient appeared to have improvement of her symptoms. I discussed alan's findings with the patient. She verbalized agreement of the treatment plan. The patient was discharged to [facility]. Medical Decision This is a 71-year-old female presents with left-sided abdominal pain. Differential diagnosis includes anastomotic leak, visceral perforation, peritonitis, abscess, pancreatitis. I did perform a limited focused review of portions of the patient's old chart on the electronic medical record. The patient was here 02/06 for abdominal pain. She had surgery for stomach cancer 6 weeks prior to that. She noticed that one of her wound drains was draining less fluid. CT scan demonstrated an intrabdominal abscess and she had dehiscence of her incision. She was transferred to [facility]. I did evaluate the patient as noted above. The patient is presenting with left- sided upper abdominal pain which started yesterday while she was at [facility]. She had a subsequent CT scan which showed resolution of her intra-abdominal abscess. She states that her pain got almost immediately better after her J-tube fell out. Currently the patient has some mild tenderness in the left upper quadrant. The J-tube stoma is slightly red but doesn't look cellulitic. She does have a drain in the left upper quadrant which apparently appears to be working. IV access was established. I did order and personally review the patient's 12-lead EKG as described above. I did order and review the patient's blood work as noted in the electronic medical record. Her white blood cell count is not elevated. I did order a CT of the abdomen and pelvis. I did review the images myself as well as the radiology report as described above. The CAT scan shows a abscess cavity with the drain in place. No acute process is noted. There is no extravasation of oral contrast to suggest anastomotic leakage. I did discuss the test results with the patient and her family. The patient did not wish to be transferred to [facility]. I did speak to the surgeon executive communications manager and discussed the case in detail with him. He stated that the only concern was losing the J-tube tract. I did attempt to have our surgeon here replaced the J-tube but the local surgeon was uncomfortable performing this procedure. I talked to the patient again and she again stated her reluctance she was to go back down to [facility]. I therefore called the surgeon at [facility] back and discussed the case with him. I also had him speak to the patient and her daughter. They did have a long discussion and they decided that the patient could go back to [facility] as she has been eating and may not necessarily need the J-tube. A dry dressing was placed over the stoma. She was sent back to [facility] and the surgeon on-call today stated that he would contact Dr. Arevalo tomorrow who is her regular surgeon. Medication Reconcilliation Current Medication List: was personally reviewed by me Blood Pressure Screening Patient's blood pressure: Elevated blood pressure Blood pressure disposition: Referred to PCP Consults Time Called: 2039 Consulting Physician: Dr. Arrieta - Radiology Returned Call: [address] Arrieta of radiology and he recommended a CT with oral contrast. Additional Consults: Time Called: 2319 Consulted Physician: Dr. Parra - [facility] Returned Call: [phone] Additional Comments: I spoke to Dr. Parra of Surgery at [facility]. He recommends the patient be sent to [place]. 0037: I spoke to Dr. Parra of Surgery. He will come down and attempt to place the J-Tube. 0039: I spoke to Dr. Parra and he no longer feels comfortable putting the J-Tube in. Time Called: 14 Consulted Physician: Dr. Delatorre - [facility] Returned Call: 22 Additional Comments: 0023: Dr. Delatorre of Surgical Oncology at [place]. He recommends that we try to save the J tube fistula track and we can send her back to [facility]. If not, they will evaluate her at [facility]. 0103: I spoke to Dr. Delatorre again and the patients family. He is currently discussing a plan with the patients daughter to decide whether or not to transfer her. 0121: Dr. Delatorre talked to the patient's family at length. They decided that they would let the tract close and she will go back to [facility] as she has been eating well there. Impression Primary Impression: LUQ abdominal pain Additional Impression: Dislodged jejunostomy tube Scribe Attestation The scribe's documentation has been prepared under my direct and personally reviewed by me in its entirety. I confirm that the note above accurately reflects all work, treatment, procedures, and medical decision making performed by me. Departure Information Dispostion Discharge/Transfer to [facility] (PCP) Forms HOME CARE DOCUMENTATION FORM, IMPORTANT VISIT INFORMATION, WORK / SCHOOL INSTRUCTIONS Additional Instructions You have been examined and treated today on an emergency basis only. This is not a substitute for, or an effort to provide, complete comprehensive medical care. It is impossible to recognize and treat all injuries or illnesses in a single emergency department visit. It is therefore important that you follow up closely with your surgeon. Call as soon as possible for an appointment. Return for worsening symptoms or if you develop fever, vomiting, or any other concerning symptoms. Problem Qualifiers
== END 2017-02-17 01:59 | disposition home or self-care (01) ==
LOC: EDBD 19:18 → C.EDB 19:19
DX: R10.12 Left upper quadrant pain (principal); Z43.4 Encounter for attention to other artificial openings of digestive tract; Z85.028 Personal history of other malignant neoplasm of stomach; Z79.01 Long term (current) use of anticoagulants